=== PATIENT | male | born 1990 | race Caucasian/White ===

== ENCOUNTER → 2016-11-12 | Outpatient (CLI) | payer OTHER ==
[~2016-11-12] MED LIST: GADOBUTROL 7.5 MMOL/7.5 ML VIAL INT ART ONE; IOHEXOL 300 MG/ML 50 ML VIAL. INT ART ONE; LIDOCAINE 1% Multi-Dose 20 ML VIAL. ID ONE; NAPR375T3 PO
--- NOTE | 2016-11-12 14:32 | KCIC ---
MR arthrogram of the left shoulder Indication: Left shoulder pain. Popping and clicking. Heavy lifting injury. Technique: Intra-articular contrast injected into the glenohumeral joint and is reported separately. Routine 4 plane sequences were obtained, including ABER positioning. Findings: Acromioclavicular joint:Intact. Rotator cuff: No evidence of rotator cuff tear. No significant fluid or contrast accumulation in the subacromial subdeltoid bursa. Subdeltoid bursa:No significant fluid or contrast accumulation. Articular cartilage: Linear defect of the articular cartilage at the inferior glenoid compatible a small fissure or tear. No displaced fragment. Labrum: Tear of the superior through posterior labrum. Biceps tendon: Intact Bones: No lesion or acute fracture. Soft tissue: No acute findings. Impression: 1. Posterior through superior labral tear. 2. Small linear signal alteration at the inferior glenoid cartilage compatible with a very small tear or fissure. Electronically signed by: Solitario Garcia MD (11/12/2016 2:29 PM) [id number]
--- NOTE | 2016-11-12 14:33 | KCIC ---
PROCEDURE: Left shoulder injection using fluoroscopic guidance, prior to MR. HISTORY: Shoulder pain. Heavy lifting one week ago. [place] a pop. TECHNIQUE: The procedure was explained to the patient as were potential risks, including among others infection, bleeding or allergic reaction. All questions were answered. Informed written and verbal consent was obtained. The shoulder was prepped and draped in the usual sterile manner. Following administration of local anesthetic, a 22-gauge needle was advanced into the anterior shoulder. Following negative aspiration, 12 cc of a solution of 5cc Omnipaque-300 contrast, 5 cc 1% lidocaine, 10 cc normal saline, and 0.1 cc gadolinium was injected without difficulty. The needle was removed. There was good hemostasis at the injection site. The patient left in stable condition without immediate complication. The patient was given postprocedural instructions, and instructed to contact us or the ER if there are any complications. A single spot image is obtained. FLUOROSCOPY TIME:?19 seconds Electronically signed by: Solitario Garcia MD (11/12/2016 2:30 PM) [id number]
== END | disposition home or self-care (01) ==
LOC: KCIC 12:22
PROVIDERS: ATTEND Physician Assistant
DX: S43.432A Superior glenoid labrum lesion of left shoulder, initial encounter (principal); X58.XXXA Exposure to other specified factors, initial encounter; Y93.89 Activity, other specified; Y92.89 Other specified places as the place of occurrence of the external cause; Y99.8 Other external cause status
CPT/HCPCS: 73040; 73222; A9585; Q9967